=== PATIENT | female | born 1980 | race Caucasian/White ===

== ENCOUNTER 2022-07-05 00:36 | Day surgery (SDC) | payer OTHER, SELFPAY ==
[2022-06-26 10:52] VITALS: BMI 29.0
--- NOTE | 2022-06-26 10:56 | PC.NURSE ---
Addendum entered by Diana Briscoe RN 06/26/22 11:26: PT INSTRUCTED TO TAKE LAST DOSE OF VITAMIN ON 07/01/22. Original Note: Report to the Outpatient Waiting Room, entrance under the green pavilion located off [facility], at time 0930 on date 07/05/22. Planned Procedure Time: 1130. Time changes happen often and if your time is changed the preop area will call you the afternoon before. - You and your visitor will be asked to self-screen and do not enter if you have any COVID symptoms. - Only one visitor is requested with a max of two and NO children visitors are allowed at this time. - The patient visitor may be requested to leave or wait in car when not with patient due to distancing restrictions. - A mask is optional within the hospital. Patients may have clear liquids (water, carbonated beverages, clear teas, apple juice) until 3 hours prior to surgery with a maximum of 20 ounces. - No food from midnight until time of surgery Take the following medications with a SIP of water the morning of surgery: N/A Medications to discontinue per physician: N/A Date to take last dose: N/A Please no make-up, nail lithuanian, hairspray, perfume, deodorant, or body powder the day of surgery. No jewelry (including any body piercings) or valuables the day of surgery, leave them at home. Please take a shower or bath the night before, or the morning of, surgery with an antibacterial soap. Wear comfortable, loose fitting clothing. - Jewelry must be removed prior to entering the operating room. Rings and piercings that are not removed may be cut off. - The hospital will not accept responsibility for valuables. - Please leave all valuables, including medications, at home the day of surgery. If you are going home after surgery, a licensed stage driver must drive you home. - NO public transportation without another adult if you receive anesthesia. - We recommend that an adult stay with you for 24 hours following discharge. - We also recommend that you do not drive, make important decision, drink alcoholic beverages, or take any drugs that were not prescribed by your health care provider for at least 24 hours after your discharge time. Follow any additional instructions given to you from your surgeon. If you or anyone in your household have experienced Covid symptoms in the past week, please notify your surgeon or the nurse liaison at the phone number below for possible testing. Telephone instructions given to CIRO KEMP and asked if any additional questions and then verbalized understanding. Patient advised to call surgeon office or pre surgery nurse liaison [phone] if any additional questions.
--- NOTE | 2022-07-04 21:36 | PM.IMHP ---
H&P: [facility] History of Present Illness Date/Time: 07/04/22 21:36 Chief Complaint: heavy bleeding Narrative: Patient with a long history of menorrhagia. She has been given treatment options and has opted for endometrial ablation. Recent endometrial biopsy normal. She also has satisfied parity and desires sterilization with salpingectomy at the same time. Review of Systems Review of Systems: All systems reviewed & are unremarkable except as noted in HPI and below Constitutional: Constitutional: Reports no additional constitutional complaints Eyes: Eyes: Reports no additional eye complaints Cardiovascular: Cardiovascular: Reports no additional cardiovascular complaints Respiratory: Respiratory: Reports no additional respiratory complaints Gastrointestinal: Gastrointestinal: Reports no additional gastrointestinal complaints Genitourinary: Genitourinary: Reports no additional female genitourinary complaints and Reports as per HPI Integumentary/Breasts: Skin/Breast: Reports system reviewed and no additional complaints, except as docu Neurologic: Reports system reviewed and no additional complaints, except as documented Psychiatric: Psychiatric: Reports no additional psychiatric complaints Hematologic/Lymphatic: Hematologic/Lymphatic: Reports no additional hematologic/lymphatic complaints [facility] Past Medical History Medical History Menorrhagia Overweight Surgical History Surgical History S/P right breast biopsy Family History Family History Father Family history of elevated blood lipids Malignant neoplasm of prostate Family history of lung cancer Family history of coronary artery disease, Onset Age: 64 Mother Family history of malignant neoplasm of breast in first degree relative, Onset Age: 56 Patient's mother is Social History Social History Smoking packs per day: 0.5 Smoking cigarettes per day: 10.0 Years smoked: 25 Smoking pack-years: 12.50 Smoking status: Former smoker Tobacco type: cigarettes Second hand tobacco smoke exposure: No Smoking end date: 04/04/21 Alcohol intake: current Drinks per week: 4 Substance use: never Substance use type: does not use Living arrangements: with family Spiritual care concerns: No Meds Home Medications and Allergies Home Medications Medication Instructions Recorded Confirmed Type multivitamin 1 tablet PO DAILY 06/26/22 06/26/22 History Allergies Allergy/AdvReac Type Severity Reaction Status Date / Time Penicillins Allergy Unknown Hives Verified 07/05/22 09:36 Exam Const: General: comfortable and no acute distress Orientation/consciousness: oriented to person, oriented to place and oriented to time Eyes: General: appearance normal, both eyes and all related structures Neck: Neck: normal visual inspection Resp: Effort & Inspection: normal respiratory effort Auscultation: clear to auscultation bilaterally Cardio: Rate: regular rate Rhythm: regular rhythm GI: Inspection: normal to inspection GI Palp: No abdominal tenderness and Yes No hepatosplenomegaly present : External Female Exam: normal external appearance Speculum Exam - Vagina: normal appearance of the vagina Speculum Exam - Cervix: normal appearance of the cervix Bimanual exam- vagina & uterus: normal bimanual exam, uterine mobility normal, uterine shape normal and non-tender Bimanual Exam- Adnexa, other: no masses and No adnexal tenderness Skin: General skin exam: normal color Neuro: General: oriented to person, oriented to place and oriented to time Psych: Appearance: grossly normal Assessment and Plan Assessment and plan (1) Menorrhagia: Code(s): N92.0 - Excessive and frequent menstruation
[2022-07-05] VITALS (9 sets, daily range): BP systolic 108–116; BP diastolic 45–69; PULSE 45–72; RESP 10–16; TEMP 36.6–36.7; O2SAT 99–100
--- NOTE | 2022-07-05 09:36 | P.PNAN_ITS ---
Anes - Initial Pre Proc Eval Procedure: Operation Date: 07/05/22 11:30 Proposed Procedures p Hysteroscopy, Dilation and Curettage with [employer], Jennie Endometrial Ablation, Possible Fibroid Removal, - Chase Vu MD s Bilateral Laparoscopic Salpingectomy - Chase Vu MD Date/Time: 07/05/22 09:36 Surgeon: Chase Vu MD Pre Op Diagnosis: Menometrorrhagia Patient Data Age: 42 Gender: F Height: 1.7 m Weight: 83.91 kg Allergies Allergy/AdvReac Type Severity Reaction Status Date / Time Penicillins Allergy Unknown Hives Verified 07/05/22 09:36 Home Medications Medication Instructions Recorded Confirmed Type multivitamin 1 tablet PO DAILY 06/26/22 06/26/22 History Patient hx anesthesia problems: none Family hx anesthesia problems: none Results Review: All pre-operative results and documents have been reviewed as part of the pre- operative evaluation. [facility] Past Medical History Medical History (Updated 07/05/22 @ 09:37 by You Astudillo MD) Menorrhagia Overweight Surgical History Surgical History S/P right breast biopsy Family History Family History Father Family history of elevated blood lipids Malignant neoplasm of prostate Family history of lung cancer Family history of coronary artery disease, Onset Age: 64 Mother Family history of malignant neoplasm of breast in first degree relative, Onset Age: 56 Patient's mother is Social History Social History Smoking packs per day: 0.5 Smoking cigarettes per day: 10.0 Years smoked: 25 Smoking pack-years: 12.50 Smoking status: Former smoker Tobacco type: cigarettes Second hand tobacco smoke exposure: No Smoking end date: 04/04/21 Alcohol intake: current Drinks per week: 4 Substance use: never Substance use type: does not use Living arrangements: with family Spiritual care concerns: No Anes - Eval Final PreProcedure Day of Procedure 07/05/22 09:36 Patient weight: overweight Heart: regular rate and rhythm Lungs: clear to auscultation Airway: Mallampati scale class II Neurological: alert and oriented Last oral intake: >/= 8 hours ASA classification: II Emergent: no Anesthesia type and monitoring: general ETT and standard monitoring Results Review: All pre-operative results and documents have been reviewed as part of the pre-operative evaluation. Informed Consent: The patient's anesthetic plan and its attendant risks and benefits were discussed with the patient/family/POA. Questions were solicited and answers provided to the satisfaction of the patient/family/POA.
[2022-07-05] MEDS: ACETAMINOPHEN 500 MG TABLET 1000 MG PO (09:45)
[2022-07-05] MEDS: LACTATED RINGERS 1,000 ML 30 ML IV CONT ×2 (09:50→12:06)
--- NOTE | 2022-07-05 09:50 | WPDHPUPDATE1 ---
History and Physical Update Update Date/Time: 07/05/22 09:50 History and Physical has been reviewed, including an updated exam of the patient. There are NO changes in the patient's condition. Risks, benefits, and alternatives have been discussed and questions answered. Patient agrees to proceed with procedure.
[2022-07-05] MEDS: ceFAZolin 2 GM/D5W 50 ML 2 GM/50 ML BAG IVPB (10:34)
[2022-07-05] MEDS: BUPivacaine HCL 0.5% PF 30 ML VIAL 15 ML INFILTRATE (10:54)
--- NOTE | 2022-07-05 11:21 | SUR.OPER ---
hysteroscopy at 11:21
[2022-07-05] MEDS: KETOROLAC 30 MG/ML VIAL (*BKC) IV PUSH (11:31)
--- NOTE | 2022-07-05 11:57 | W.PM.PROC2 ---
Procedure Note - Detailed Date of Procedure 07/05/22 Pre-op Diagnosis Menometrorrhagia Satisfied parity desires sterilization Post-op Diagnosis Same Procedure Performed 1. Laparoscopic bilateral salpingectomy 2. D and C hysteroscopy with Jennie endometrial ablation Surgeon Chase Vu MD Anesthesia General Indications heavy bleeding and satisfied parity desires sterilization Findings there was a small sub serosal fibroid at the posterior uterus approximately 1 and half to 2 cm. The fallopian tubes were normal bilaterally there was a cyst on the right fallopian tube consistent with paratubal cyst. Ovaries were normal bilaterally. The uterus sounded to 8 cm cervical length 4 cm therefore uterine length 4 cm the cavity appeared normal with proliferative tissue D&C was performed. There was noted to be good eschar after the endometrial ablation. Description of Procedure After informed consent was obtained patient was taken to the operating room and general endotracheal anesthesia was administered. She was placed in low lithotomy need prep prepped sterile fashion. Attention was turned to the vagina speculum inserted single-tooth tenaculum placed on anterior lip of the cervix. [place] uterine manipulator placed into the cervical canal. The speculum was removed. Attention was then turned to the abdomen. 0.5% Marcaine injected at the umbilical skin. With sterile gloves a vertical incision was made at the umbilicus and a Veress needle was inserted into the abdomen confirmation into the abdomen obtained with free flow of fluid and normal peritoneal pressures. A pneumoperitoneum of 15 mm per mercury was obtained. 5% Marcaine was injected at the 5 mm port was inserted under laparoscopic visualization. Patient was placed in Trendelenburg position. Attention was turned to the left side of the abdomen and a 5 mm port was inserted under laparoscopic visualization. The pelvic organs were visualized. Attention was turned to the right side of the abdomen and another 5 mm port was inserted under laparoscopic visualization. Using the LigaSure the right fallopian tube was excised to near the entrance to the uterus. This was removed through the port. Attention was then turned to the left fallopian tube which was grabbed at the distal end and cauterized from the mesosalpinx to within a cm of the entrance to the entrance to the uterus. The fallopian tube was removed through the 5 mm port. Hemostasis was noted at both sites. Patient was taken out of Trendelenburg position the pneumoperitoneum was released and the skin incisions were closed in a subcuticular fashion with 4 O Vicryl. Attention was turned to the vagina. Speculum was inserted. Single-tooth tenaculum placed on the anterior lip of the cervix. The uterus was sounded to 8 cm. The cervix was dilated to an 8 Preciado dilator. The cervical length was 4. The hysteroscope was inserted into the cavity. The findings were a normal uterine cavity with proliferative tissue. The hysteroscope was removed. Currettage was performed. The Jennie ablation instrument was inserted into the cavity. Cavity assessment was performed and confirmed intact. The ablation was enabled. After 120 seconds the Jennie stopped. The ablation instrument was removed. The hysteroscope was inserted and there was noted to be good eschar with the cavity. The hysteroscope was removed the single-tooth tenaculum was removed hemostasis was noted at the tenaculum site. Sponge count correct. The patient taken to recovery in stable condition. Estimated Blood Loss -5.0 Urine Output -50.0 Drains No Packing No Pathology Yes (1. Right and left fallopian tube 2. Endometrial curretting) Complications No immediate complications Condition Stable Disposition PACU [facility] Billing Surgery - Charge Forward: Surgery Billing
[2022-07-05] MEDS: fentaNYL CITRATE INJ (*CRX) 100 MCG/2 ML VIAL 25 MCG IV PUSH (12:01)
== END 2022-07-05 13:08 | disposition home or self-care (01) ==
PROVIDERS: PCP Physician Assistant Medical; Visit Provider Obstetrics & Gynecology
PROC: 0U5B8ZZ Destruction of Endometrium, Via Natural or Artificial Opening Endoscopic (ICD-10-PCS; CPT 58563; principal; 2022-07-05 11:30)
PROC: (CPT 49320; 2022-07-05 11:30)
DX: N92.1 Excessive and frequent menstruation with irregular cycle (principal); Z30.2 Encounter for sterilization; D25.2 Subserosal leiomyoma of uterus; N83.8 Other noninflammatory disorders of ovary, fallopian tube and broad ligament; Z87.891 Personal history of nicotine dependence
CPT/HCPCS: 58661; 58563; 88302; 88305; A9270; J0330; J0690; J1100; J1885; J2250; J2405; J2704; J3010; J7030; J7120

== ENCOUNTER 2022-11-17 02:37 | Day surgery (SDC) | payer OTHER, SELFPAY ==
[2022-11-08 14:13] VITALS: BMI 29.0
--- NOTE | 2022-11-16 14:29 | WPDANESEPPF ---
Anes - Initial Pre Proc Eval Procedure: Operation Date: 11/17/22 08:00 Proposed Procedures p Colonoscopy - Gino Brown MD Date/Time: 11/16/22 14:29 Surgeon: Gino Brown MD Pre Op Diagnosis: hx colon polyps Patient Data Age: 42 Gender: F Height: 1.7 m Weight: 84 kg Allergies Allergy/AdvReac Type Severity Reaction Status Date / Time Penicillins Allergy Unknown Hives Verified 11/17/22 06:48 Home Medications Medication Instructions Recorded Confirmed Type multivitamin 1 tablet PO DAILY 06/26/22 11/17/22 History Patient hx anesthesia problems: none Family hx anesthesia problems: none Results Review: All pre-operative results and documents have been reviewed as part of the pre-operative evaluation. [facility] Past Medical History Medical History (Updated 11/16/22 @ 14:29 by David Burgess MD) Encounter for well woman exam with routine gynecological exam Hyperlipidemia Lower abdominal pain Menorrhagia Neck pain Overweight Postoperative pain Screening for malignant neoplasm of cervix Screening mammogram, encounter for Simple cyst of right breast Unspecified lump in left breast, subareolar Vaginal discharge Surgical History Surgical History (Updated 07/18/22 @ 12:14 by Dang Hudson MA) History of bilateral salpingectomy 07/05/22 History of endometrial ablation 07/05/22 S/P right breast biopsy Family History Family History Father Family history of elevated blood lipids Malignant neoplasm of prostate Family history of lung cancer Family history of coronary artery disease, Onset Age: 64 Mother Family history of malignant neoplasm of breast in first degree relative, Onset Age: 56 Patient's mother is Social History Social History Smoking packs per day: 0.5 Smoking cigarettes per day: 10.0 Years smoked: 25 Smoking pack-years: 12.50 Smoking status: Former smoker Tobacco type: cigarettes and e-cigarettes/vaping Second hand tobacco smoke exposure: No Smoking end date: 04/04/21 Additional smoking assessment comments: CURRENTLY VAPING Alcohol intake: current Drinks per week: 5 Substance use: never Substance use type: does not use Lack of Transportation: No Lack of Food: Never True Current Housing: I Have Housing Concerned About Future Housing: No Difficulty Paying Gas/Electric Bills: No Difficulty Paying for Meds: No Currently Unemployed: No Education: High School Diploma/GED Difficulty w/ Childcare or Family Care: No Living arrangements: with family Occupation/Education: occupation Gender identity (if verbalized by the patient): Female Sexual Orientation (if Verbalized by the Patient): Straight or Heterosexual Spiritual care concerns: No Anes - Eval Final PreProcedure Day of Procedure 11/16/22 14:29 Patient weight: overweight Heart: regular rate and rhythm Lungs: clear to auscultation Airway: Mallampati scale class II Neurological: alert and oriented Last oral intake: >/= 8 hours ASA classification: II Emergent: no Anesthesia type and monitoring: general GIVS and standard monitoring Results Review: All pre-operative results and documents have been reviewed as part of the pre-operative evaluation. Informed Consent: The patient's anesthetic plan and its attendant risks and benefits were discussed with the patient/family/POA. Questions were solicited and answers provided to the satisfaction of the patient/family/POA.
[2022-11-17 06:50] VITALS: BP 108/78; PULSE 74; RESP 16; TEMP 36.3; O2SAT 99; BMI 27.8
[2022-11-17] MEDS: LACTATED RINGERS 1,000 ML 150 ML IV CONT (07:03)
--- NOTE | 2022-11-17 07:48 | PM.HPGS ---
History of Present Illness History of Present Illness Consent: Risks, benefits, and alternatives have been discussed and questions answered. Patient agrees to proceed with procedure. Chief complaint: hx colon polyps Narrative: Jennifer Toussaint is a 42 year old female with colon polyp 5 years ago Review of Systems Constitutional: Constitutional: Denies headache(s) and Denies weakness Eyes: Eyes: Denies blurry vision ENT: Reports Normal hearing present, Denies headache(s) and Denies neck pain Cardiovascular: Cardiovascular: Denies chest pain and Denies dyspnea Respiratory: Respiratory: Denies dyspnea Gastrointestinal: Gastrointestinal: Reports no additional gastrointestinal complaints Genitourinary: Genitourinary: Denies dysuria Musculoskeletal: Musculoskeletal: Denies neck pain Integumentary/Breasts: Skin/Breast: Denies dry skin Neurologic: Reports Normal hearing present, Denies headache(s) and Denies weakness Psychiatric: Psychiatric: Denies anxiety Endocrine: Endocrine: Denies change in body appearance Hematologic/Lymphatic: Hematologic/Lymphatic: Denies easy bleeding Allergic/Immunologic: Allergic/Immunologic: Denies urticaria PMFSH Past Medical History Medical History (Updated 11/17/22 @ 07:49 by Gino Brown MD) Colon polyp Encounter for well woman exam with routine gynecological exam Hyperlipidemia Lower abdominal pain Menorrhagia Neck pain Overweight Postoperative pain Screening for malignant neoplasm of cervix Screening mammogram, encounter for Simple cyst of right breast Unspecified lump in left breast, subareolar Vaginal discharge Surgical History Surgical History (Updated 07/18/22 @ 12:14 by Dang Hudson MA) History of bilateral salpingectomy 07/05/22 History of endometrial ablation 07/05/22 S/P right breast biopsy Family History Family History Father Family history of elevated blood lipids Malignant neoplasm of prostate Family history of lung cancer Family history of coronary artery disease, Onset Age: 64 Mother Family history of malignant neoplasm of breast in first degree relative, Onset Age: 56 Patient's mother is Social History Social History Smoking packs per day: 0.5 Smoking cigarettes per day: 10.0 Years smoked: 25 Smoking pack-years: 12.50 Smoking status: Former smoker Tobacco type: cigarettes and e-cigarettes/vaping Second hand tobacco smoke exposure: No Smoking end date: 04/04/21 Additional smoking assessment comments: CURRENTLY VAPING Alcohol intake: current Drinks per week: 5 Substance use: never Substance use type: does not use Lack of Transportation: No Lack of Food: Never True Current Housing: I Have Housing Concerned About Future Housing: No Difficulty Paying Gas/Electric Bills: No Difficulty Paying for Meds: No Currently Unemployed: No Education: High School Diploma/GED Difficulty w/ Childcare or Family Care: No Living arrangements: with family Occupation/Education: occupation Gender identity (if verbalized by the patient): Female Sexual Orientation (if Verbalized by the Patient): Straight or Heterosexual Spiritual care concerns: No Meds Home Medications and Allergies Home Medications Medication Instructions Recorded Confirmed Type multivitamin 1 tablet PO DAILY 06/26/22 11/17/22 History Allergies Allergy/AdvReac Type Severity Reaction Status Date / Time Penicillins Allergy Unknown Hives Verified 11/17/22 06:48 Vital Signs Vital Signs - 24 hr 11/17/22 06:50 Temperature 97.4 F L Pulse Rate 74 Respiratory Rate 16 Blood Pressure 108/78 Pulse Oximetry 99 Oxygen Delivery Room Air Exam Const: General: comfortable and no acute distress HENMT: Face/Nose/Sinus: Normal nares present Eyes: General: appearance
[2022-11-17 08:08] VITALS: BP 93/63; PULSE 64; RESP 12; O2SAT 99
[2022-11-17 08:18] VITALS: BP 96/59; PULSE 66; RESP 20; O2SAT 98
[2022-11-17 08:28] VITALS: BP 101/66; PULSE 68; RESP 13; O2SAT 98
== END 2022-11-17 08:31 | disposition home or self-care (01) ==
PROVIDERS: PCP Physician Assistant Medical; Visit Provider Internal Medicine Gastroenterology
PROC: 0DJD8ZZ Inspection of Lower Intestinal Tract, Via Natural or Artificial Opening Endoscopic (ICD-10-PCS; CPT 45378; principal; 2022-11-17 08:00)
DX: Z12.11 Encounter for screening for malignant neoplasm of colon (principal); K64.8 Other hemorrhoids; Z86.010 Personal history of colon polyps; F17.290 Nicotine dependence, other tobacco product, uncomplicated
CPT/HCPCS: 45378; J2704; J7120